=== PATIENT | female | born 1995 | race Caucasian/White ===

== ENCOUNTER 2025-05-11 23:03 | Emergency (ER) | payer MEDICAID ==
[2025-05-11 23:27] VITALS: BP 109/62; PULSE 107; RESP 15; TEMP 98.9; O2SAT 100
--- NOTE | 2025-05-11 23:36 | Physician Documentation ---
History of Present Illness ~ Chief Complaint: Breast pain Stated Complaint: SEE CHIEF COMPLAINT Time Seen by MD: 23:42 [facility] This is a 29-year-old breast-feeding female who presents with right breast pain patient was seen by telemedicine provider and prescribed Keflex today, patient reports to emergency department for continued pain. Reports no fever or chills. Patient reports no other acute symptoms or concerns. Medication Reconciliation Allergies: Coded Allergies: No Known Allergies (Unverified , 05/11/25) Past Medical History Past Medical History: No Pertinent History Review of Systems ROS As stated above in the HPI, otherwise all systems are reviewed and negative. Physical Exam Vital Signs: Temperature: 98.9, Source: Oral, Heart Rate: 107, Respiratory Ra te: 15, BP: 109/62, Pulse Oximetry: 100 General Appearance VITALS: Reviewed and as above. GENERAL: Alert, nontoxic appearing, no apparent distress. RESPIRATORY: No increased work of breathing, no respiratory distress, speaking in full clear sentences SKIN: No erythema to breast Progress Results/Orders Results/Orders Vital Signs 05/11/25 23:27 Temp 98.9 Pulse 107 Resp 15 B/P (MAP) 109/62 Pulse Ox 100 Medical Decision Making Additional information obtaine: N/A Findings This is a 29-year-old breast-feeding female who presented with right breast pain patient was seen by telemedicine provider and prescribed Keflex today, patient reports to emergency department for continued pain. It was reassuring patient reported no fever or chills and there was no erythema to the breast on exam. Patient was seen in triage, myself and RN provided extensive home care education to patient verbalized understanding and was reassured. With shared decision- making patient will continue taking her previously prescribed Keflex. Patient provided careful return to care precautions, follow up instructions, and home care instructions which he verbalized understanding of. Differential Dx:Considerations: Include: Breast abscess, Breast engorgement, Breast mass, Cancer, Cellulitis, Fibrocystic disease, Lymphagitis, Mastitis Departure Time of Disposition: 23:40 Disposition: 01 HOME / SELF CARE / HOMELESS Impression: Primary Impression: Breast tenderness Condition: Improved Discharge Instructions: Mastitis Additional Instructions: Continue taking your Keflex as prescribed, you may take up to 600 mg of ibuprofen every 6 hours as needed for pain, you may also combine this with up to 1000 mg of Tylenol every 6 hours for breakthrough pain. Please see the attached home care instructions for mastitis care. Please follow up with your primary care provider in the next few days. Please return to the emergency department for any new or worsening concerning symptoms including but not limited to development of fever over 100.4 that does not lower with ibuprofen or Tylenol. Referrals: NO PRIMARY CARE PROVIDER (PCP) Education Educated: Patient, Family Educated regarding: diagnosis, treatment, prognosis, need for follow up Signature Scribe Signature: No scribe Attestation: The note accurately reflects work and decisions made by me.ALEX Higginbotham 05/12/25 00:56 Parts of this note were created using [employer] voice recognition software program. While efforts were made to correct any mistakes made by this voice recognition software program, nonsensical phrases may remain in this note. In addition, there may be errors and syntax, grammar, content and spelling. GRETCHEN DUVAL May 11, 2025 23:36
== END 2025-05-12 00:04 | disposition home or self-care (01) ==
LOC: ER 23:08
DX: N64.4 Mastodynia (principal)
CPT/HCPCS: 99282